=== PATIENT | female | born 1955 | race Caucasian/White ===

== ENCOUNTER 2021-08-20 14:10 | Emergency (ER) | payer MEDICARE, SELFPAY ==
--- NOTE | ~2021-08-20 | XR_ITS ---
EXAMINATION: XR finger 1st LT min 2V DATE: 08/20/2021 14:42 INDICATION: Generalized left thumb pain and swelling post fall TECHNIQUE: Dorsal palmar, lateral and 2 oblique views of the left first digit were obtained COMPARISON: None FINDINGS: Mild distraction of the intra-articular fracture at the dorsal base of the left first proximal phalan x. There is an approximately 1.5 mm fracture gap at the articular cortex. No other acute fractures id entified. 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 Polyarticular osteoarthritis, moderate severity at the first carpometacarpal joint and mild at the first metacarpop halangeal and first interphalangeal joints. IMPRESSION: 1. Mildly distracted intra-articular fracture at the dorsal base of the left first distal phalanx. Reviewed, dictated and finalized at location B. [facility] IMPRESSION: 1. Mildly distracted intra-articular fracture at the dorsal base of the left fi rst distal phalanx.
--- NOTE | 2021-08-20 14:21 | ED.FALL ---
HPI - Fall General Chief Complaint: Extremity Injury, Upper Stated Complaint: Fall Injury/Left Hand/Right Knee Time Seen by Provider: 08/20/21 14:21 Source: patient and RN notes reviewed History of Present Illness HPI Narrative: Patient is 66-year-old female who presents the urgent care with complaints of left thumb pain and right knee pain. Patient is right-hand dominant. Patient states that she fell over a parking block in front of the [facility] [employer] and [place]. Patient states that she called the [place] police to make a report without the knowledge of knowing that placed apartments do not make injury reports. Patient has not taken anything [id number] for her pain. Patient is ambulating without any difficulties. Patient is moving all extremities without difficulty. Patient does have a chronic limp due to a right knee replacement. Denies of hitting her head or any loss of consciousness. No other complaints. No acute distress noted. Patient aware of the plan of care. Some parts of this dictation were generated by voice recognition software and may contain typographical and/or grammatical inaccuracies. Related Data Home Medications Medication Instructions Recorded Confirmed aspirin 81 mg PO DAILY 08/20/21 08/20/21 eszopiclone 3 mg PO DAILY 08/20/21 08/20/21 ezetimibe 10 mg PO DAILY 08/20/21 08/20/21 fenofibrate 160 mg PO DAILY 08/20/21 08/20/21 glipizide 5 mg PO DAILY 08/20/21 08/20/21 levothyroxine 137 mcg PO DAILY 08/20/21 08/20/21 metformin 2,000 mg PO DAILY 08/20/21 08/20/21 sertraline 200 mg PO DAILY 08/20/21 08/20/21 Allergies Allergy/AdvReac Type Severity Reaction Status Date / Time No Known Allergies Allergy Verified 08/20/21 14:32 Review of Systems Review of Systems: CONSTITUTIONAL: Denies fever, chills, or sweats. EYES: Denies visual changes, redness, or discharge. ENT: Denies rhinorrhea, congestion, sore throat, or otalgia. CARDIOVASCULAR: Denies chest pain, palpitations, or edema. RESPIRATORY: Denies cough or dyspnea. GASTROINTESTINAL: Denies abdominal pain, nausea, vomiting, or diarrhea. GENITOURINARY: Denies dysuria or hematuria. SKIN: Reports of an abrasion to the right knee MUSCULOSKELETAL: Reports of right knee pain and left thumb pain NEUROLOGIC: Denies headache, numbness, or weakness. All other systems reviewed are negative, except as documented in HPI. PMFSH Comments At the time of my signature, I reviewed and agree with the nursing past medical, surgical, social, and family history. There is no relevant family history pertinent to the patient complaint. Exam Narrative: GENERAL: This is a well-nourished, well-developed patient, in no apparent distress. HEAD: normocephalic, atraumatic. EYES: PERRL. Sclera clear/white. Vision is grossly intact. EARS: External ears normal NOSE: External nose normal with no obvious nasal discharge, nares without redness, no rhinorrhea. THROAT: Mucous membranes moist NECK: Neck supple CARDIOVASCULAR: Regular rate and rhythm without murmurs, gallops, or rubs. RESPIRATORY: Clear to auscultation. Breath sounds equal bilaterally. No wheezes, rales, or rhonchi. SKIN: 2 x 2cm area of nonbleeding superficial skin abrasion to the anterior aspect of the right knee NEURO: awake, alert, and oriented to person, place and time. There were no obvious focal neurologic abnormalities. EXTREMITIES: Very mild ecchymosis noted between the PIP and DIP of the left thumb. Range of motion to left upper extremity within normal limits with positive left radial pulse and capillary refill less than 2 seconds. Range of motion to right lower extremity within normal limits. Positive strong right pedal pulse with capillary refill less than 2 seconds. No notable ecchymosis/erythema/edema noted to the right knee Course Vital Signs Vital signs: Vital Signs Temperature 98.2 F 08/20/21 14:22 Pulse Rate 80 08/20/21 14: Respiratory Rate 18 08/20/21 14: Blood Pressure
[2021-08-20 14:22] VITALS: BP 154/61; PULSE 80; RESP 18; TEMP 36.8; O2SAT 99
== END 2021-08-20 15:10 | disposition home or self-care (01) ==
PROVIDERS: Emergency Provider Nurse Practitioner Family
DX: S62.522A Displaced fracture of distal phalanx of left thumb, initial encounter for closed fracture (principal); W18.09XA Striking against other object with subsequent fall, initial encounter; E78.00 Pure hypercholesterolemia, unspecified; G47.30 Sleep apnea, unspecified; E11.9 Type 2 diabetes mellitus without complications; E03.9 Hypothyroidism, unspecified
CPT/HCPCS: 29130; 73140; 99214; G0463

== ENCOUNTER 2022-04-14 11:21 | Emergency (ER) | payer MEDICARE, SELFPAY ==
--- NOTE | 2022-04-14 11:23 | ED.UPPEXIN ---
HPI - Extremity Injury (Upper) General Chief Complaint: Extremity Injury, Upper Stated Complaint: left thumb injury/infection Time Seen by Provider: 04/14/22 11:22 Source: patient Mode of arrival: ambulatory Limitations: no limitations History of Present Illness HPI narrative: Ms. Medley is a 66-year-old female patient presenting to the clinic today with complaints of possible left thumb injury/finger infection. She reports she fell approximately 6 months ago and broke her left thumb. Was seen yesterday in [facility] care and given prescription for Augmentin to treat a paronychia of the left thumb.. She reports that she was seen 6 months ago for her left thumb and it was fractured and she saw a bone doctor at that time and they stated they would have to redirect her to fix it and she was upset about this. Still has some green discharge under the skin to the lateral thumb. Also notes swelling and pain to the MIP joint. Has mild redness to this area Related Data Home Medications Medication Instructions Recorded Confirmed aspirin 81 mg tablet,delayed 81 mg PO DAILY 08/20/21 04/14/22 release eszopiclone 3 mg tablet 3 mg PO DAILY 08/20/21 04/14/22 ezetimibe 10 mg tablet 10 mg PO DAILY 08/20/21 04/14/22 glipizide 5 mg tablet 5 mg PO DAILY 08/20/21 04/14/22 levothyroxine 137 mcg tablet 137 mcg PO DAILY 08/20/21 04/14/22 metformin 500 mg tablet,extended 2,000 mg PO DAILY 08/20/21 04/14/22 release 24 hr sertraline 100 mg tablet 200 mg PO DAILY 08/20/21 04/14/22 atorvastatin 80 mg tablet 80 mg PO DAILY 04/14/22 04/14/22 Allergies Allergy/AdvReac Type Severity Reaction Status Date / Time No Known Allergies Allergy Verified 04/14/22 11:46 Review of Systems Review of Systems: Pertinent positives per HPI. Patient denies any fever, chills, rash, headache, visual changes, dizziness, cough, runny nose, sore throat, shortness of breath, chest pain, palpitations, nausea, vomiting, diarrhea, constipation, abdominal pain, or any urinary issues. PMFSH Comments At the time of my signature, I reviewed and agree with the nursing past medical, surgical, social, and family history. There is no relevant family history pertinent to the patient complaint. Exam Narrative: General: Well-developed, well nourished, in no apparent distress Head: Normocephalic, atraumatic. Cardio: Regular rate and rhythm, s1 and s2 normal, no murmur appreciated. Resp: Clear to auscultation bilaterally, no rhonchi, rales, wheezing or rubs. Musculoskeletal: Obvious deformity due to old fracture of the left MIP joint, tender to palpation over the lateral left finger where paronychia is located, limited range of motion of the MIP joint due to swelling, muscle strength strong and equal, peripheral pulse strong, no cyanosis, normal gait and station Course Course Emergency Course: Portions of this record may have been created with voice recognition software. Level of Care: Express Care Visit Vital Signs Vital signs: Vital Signs Temperature 37.2 C 04/14/22 11:40 Pulse Rate 64 04/14/22 11:40 Respiratory Rate 16 04/14/22 11:40 Blood Pressure 149/59 H 04/14/22 11:40 Pulse Oximetry 98 04/14/22 11:40 Oxygen Delivery Room Air 04/14/22 11:40 Temperature 37.2 C 04/14/22 11:40 Pulse Rate 64 04/14/22 11:40 Respiratory Rate 16 04/14/22 11:40 Blood Pressure 149/59 H 04/14/22 11:40 Pulse Oximetry 98 04/14/22 11:40 Oxygen Delivery Room Air 04/14/22 11:40 Vital signs reviewed MDM - Extremity Injury (Upper) MDM Narrative Medical decision making narrative: At the time of visit patient is resting comfortably on the exam table. I suspect the patient has an old fracture of the left thumb as this has been diagnosed 6 months ago and she did not have it repaired at that time. She has a paronychia to the left lateral thumb. Antibiotics were prescribed yesterday and the patient has yet to bulk picker this prescription. Recommend
[2022-04-14 11:40] VITALS: BP 149/59; PULSE 64; RESP 16; TEMP 37.2; O2SAT 98
== END 2022-04-14 12:15 | disposition home or self-care (01) ==
LOC: EXPBETH 11:33
PROVIDERS: Emergency Provider Nurse Practitioner Family; PCP Nurse Practitioner
DX: M79.645 Pain in left finger(s) (principal); L03.012 Cellulitis of left finger; E78.00 Pure hypercholesterolemia, unspecified; J44.9 Chronic obstructive pulmonary disease, unspecified; G47.30 Sleep apnea, unspecified; Z96.653 Presence of artificial knee joint, bilateral; E11.9 Type 2 diabetes mellitus without complications; E03.9 Hypothyroidism, unspecified; F41.9 Anxiety disorder, unspecified
CPT/HCPCS: 99212; G0463